=== PATIENT | male | born 1980 | race Caucasian/White ===

== ENCOUNTER 2022-10-30 15:22 | Emergency (ER) | payer OTHER ==
[~2022-10-30] VITALS: Ht 170.2 cm; Wt 53.1 kg
[2022-10-30 15:46] VITALS: BP 153/100
[2022-10-30] MEDS ORDERED: KETOROLAC 30 MG/ML VIAL IM ONE (16:45)
[2022-10-30] MEDS ORDERED: ACET-8905 PO (17:33)
[2022-10-30] MEDS ORDERED: AMOX500C25 PO (17:33)
[2022-10-30] MEDS ORDERED: IBUP-2213 PO (17:33)
--- NOTE | 2022-10-30 18:10 | NUR ---
Patient discharged with v/s stable. Written and verbal after care instructions ABOUT ORAL MUCOSITIS given and explained. Patient alert, oriented and verbalized understanding of instructions. Ambulatory with steady gait. All questions addressed prior to discharge. ID band removed. Patient advised to follow up with PMD. Rx of NORCO 5-325, AMOXICILLIN, MOTRIN given. Patient educated on indication of medication including possible reaction and side effects. Opportunity to ask questions provided and answered.
--- NOTE | 2022-10-30 18:10 | NUR ---
C/O LEFT JAW [id number], TOOK ADVIL WITH MODERATE RELIEF NKA PMH: DENIES
== END 2022-10-30 18:10 | disposition home or self-care (01) ==
LOC: MED 15:22
DX: R68.84 Jaw pain (principal)
CPT/HCPCS: 96372; 99283; J1885